=== PATIENT | female | born 1945 | race Caucasian/White ===

== ENCOUNTER 2019-01-19 10:40 | Outpatient (CLI) | payer MEDICARE, OTHER, SELFPAY ==
--- NOTE | 2019-01-19 10:36 | DI.RAD_ITS ---
SYMPTOMS/DIAGNOSIS: RT SHOULDER PAIN RIGHT SHOULDER: No fracture or dislocation is seen. There are mild degenerative changes of the AC joint and glenohumeral joint. IMPRESSION: Mild degenerative changes.
== END 2019-01-19 11:00 ==
PROVIDERS: PCP Family Medicine; Referring Provider Family Medicine; Visit Provider Student in an Organized Health Care Education/Training Program
DX: M25.511 Pain in right shoulder (principal); M75.81 Other shoulder lesions, right shoulder
CPT/HCPCS: 99214; 73030

== ENCOUNTER 2021-05-31 01:51 | Outpatient (CLI) | payer MEDICARE, OTHER, SELFPAY ==
--- NOTE | 2021-05-31 | DI.MRI_ITS ---
Exam(s) MR BRAIN WO/W EXAM: MR BRAIN WO/W CLINICAL HISTORY: INCIDENTAL CEREBELLAR MASS ON NECK CT,MENINGIOMA VS METS VS OTHER,G93.89 TECHNIQUE: Multiplanar multisequence MRI of the brain was performed. CONTRAST MATERIAL: IV Contrast: 12 ML of Dotarem contrast administered. COMPARISON: FINDINGS: VENTRICLES AND EXTRA AXIAL SPACES: Normal in size and morphology for the patient's age. HEMORRHAGE: None. CEREBRAL PARENCHYMA: No focus of restricted diffusion to suggest acute infarct. No space-occupying le jamli identified. There are multiple foci of hyperintense signal on the T2 and FLAIR images in the whi te matter consistent with chronic microvascular ischemic disease. There is a 1 x 1.1 cm extra-axial mass in the left posterior cranial fossa. It shows homogeneous enhancement following contrast admini stration. This corresponds to the finding seen on the CT scan from 05/03/2021. No other enhancing les ions are identified. MIDLINE SHIFT: None. BRAINSTEM/CEREBELLUM: Normal. CALVARIUM: Normal. ENHANCEMENT: Please see above. VISUALIZED PARANASAL SINUSES/MASTOIDS: Clear. [place]: Normal flow void. PITUITARY GLAND: Unremarkable. OTHER FINDINGS: IMPRESSION: 1 x 1.1 cm homogeneously enhancing extra-axial mass in the left posterior cranial fossa. Primary miguelina gnostic concern is for a meningioma. DATA REPOSITORY:
[2021-05-31] MEDS: Normal Saline Flush 10 ML SYR IVP (11:08)
[2021-05-31] MEDS: Gadoterate meglumine 20 ML VIAL 12 ML IVP (11:08)
== END 2021-05-31 02:11 ==
PROVIDERS: PCP Family Medicine; Visit Provider Internal Medicine Medical Oncology
DX: D32.9 Benign neoplasm of meninges, unspecified; G93.89 Other specified disorders of brain
CPT/HCPCS: 70553

== ENCOUNTER 2022-04-24 16:44 | Outpatient (REF) | payer MEDICARE, OTHER, SELFPAY | END 2022-04-24 16:45 | disposition home or self-care (01) | LOC: LBN 16:44 | PROVIDERS: PCP Family Medicine; Visit Provider Advanced Practice Midwife | DX: R30.0 Dysuria (principal); N89.8 Other specified noninflammatory disorders of vagina | CPT/HCPCS: 87086; 87480; 87510; 87660 ==

== ENCOUNTER 2025-01-05 14:33 | Outpatient (CLI) | payer MEDICARE, OTHER, SELFPAY ==
[2025-01-05 14:46] VITALS: BP 132/83; PULSE 77; RESP 20; TEMP 36.6; O2SAT 99
--- NOTE | 2025-01-05 15:07 | PDOC.PAIN ---
Date of service: 01/05/25 Time of Service: 15:36 Pain Managment Procedure Note Procedure Note Procedure Note: Lumbar Transforaminal Epidural Steroid Injection ? Location: LEFT L5 ? Pre-procedure Diagnosis: M54.17-Radiculopathy, lumbosacral region M54.16 Radiculopathy, lumbar region ? Post-procedure Diagnosis:? The same as above ? Sedation:? none ? Estimated blood loss:? less than 2 cc ? Surgeon:? Erwin Valero MD COMMENT: Patient has questionable foraminal and lateral recess stenosis at L5-S1 with pain radiating in the S1 distribution ? Procedure Detail:?? The procedure and potential risks were explained to the patient and informed written consent was obtained. The patient was escorted to the procedure room and placed in the prone position. Pillows were utilized for proper positioning and comfort. Time out was performed in the procedure room with nursing staff confirming the patient's identity, procedure to be performed, allergies, and any blood thinning or anti-platelet medications. The patient's lower back was prepped with ChloraPrep and draped in a sterile fashion. Sterile gloves were used, a face mask was worn, and new single dose vials of all medications were used with the top being swabbed with alcohol and given time to dry prior to withdrawal of medication. A LEFT-sided oblique fluoroscopic view was obtained, with visualization of L5-S1. Lidocaine 1% was used to anesthetize the skin. The tip of a 22-gauge, Quincke needle was advanced toward the 6 o'clock position of the superior pedicle at the target level.? It was advanced just under the pedicle to the neural foramen L5-S1. Correct needle placement was confirmed through review of the fluoroscopy. Next, following negative aspiration, 1cc's of Omnipaque 240 contrast was injected under live fluoroscopy which showed good flow throughout the epidural space and no evidence of vascular flow or flow into adjacent compartments. Next, following negative aspiration, 40mg Depo-Medrol and 0.5ml of 0.5% bupivacaine was injected. The needle was gently removed.? The patient tolerated the procedure well.? Permanent images saved and recorded. Plan:? Follow up prn PAIN: PRE PROCEDURE 5/10 POST PROCEDURE 0/10 COMMENT: Attempted to get S1 but was unable to get into the foramen. Could repeat L5 as needed or consider caudal approach
[2025-01-05 15:11] VITALS: PULSE 87; O2SAT 98
[2025-01-05 15:20] VITALS: PULSE 83; O2SAT 99
[2025-01-05 15:30] VITALS: PULSE 82; O2SAT 98
[2025-01-05] MEDS: Bupivacaine 0.5% Pres-Free 10 ML VIAL IJ (15:38)
[2025-01-05] MEDS: Nerve Block Tray 1 EACH MC (15:38)
[2025-01-05] MEDS: methylPREDNISolone ACETATE 40 MG/ML VIAL IJ (15:38)
[2025-01-05] MEDS: Omnipaque 240 MG/ML 50 ML BTL IJ (15:38)
--- NOTE | 2025-01-05 15:38 | DI.RAD_ITS ---
Exam(s) XR PAIN CLINIC LUMBAR SP 2V EXAM: XR PAIN CLINIC LUMBAR SP 2V CLINICAL HISTORY: DX: Lumbar Radiculopathy. TECHNIQUE: Fluoroscopy was provided for the referring physician for guidance with performing pain cl inic injection procedure. COMPARISON: No exams were available for comparison FINDINGS: Please see procedure note for details. Fluoro time: 64.6 seconds RADIATION DOSE DELIVERED: Ka,r=27.95 mGy
== END 2025-01-05 14:34 | disposition home or self-care (01) ==
PROVIDERS: PCP Nurse Practitioner; Visit Provider Anesthesiology Pain Medicine
DX: M54.50 Low back pain, unspecified (principal); M54.17 Radiculopathy, lumbosacral region; M54.16 Radiculopathy, lumbar region
CPT/HCPCS: 00123; 64483; 72100; J0665; J1010; Q9967